=== PATIENT | male | born 1990 | race American Indian/Alaskan Native ===

== ENCOUNTER 2017-02-26 12:23 | Emergency (ER) | payer OTHER, BC ==
[2017-02-26 12:40] VITALS: BP 126/74; RESP 18; TEMP 97; O2SAT 98
[2017-02-26 13:20] LABS: ABG ALLEN TEST YES; ARTERIAL BLOOD GAS HCO3 26.7 mmol/L (21-28); ARTERIAL BLOOD GAS HEMOGLOBIN 14.8 g/dL (11.7-17.4); ARTERIAL BLOOD GAS O2 CAPACITY 20.1 mL/dL (16-24); ARTERIAL BLOOD GAS O2 CONTENT 20.2 ML/dL (15-23); ARTERIAL BLOOD GAS O2 SAT 100.6 % (95-98); ARTERIAL BLOOD GAS PCO2 42 mm/Hg (35-45); ARTERIAL BLOOD GAS PH 7.42 (7.35-7.45); ARTERIAL BLOOD GAS PO2 159 mm/Hg (80-100); ARTERIAL BLOOD GAS TCO2 28.5 mmol/L (22-28)
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
[2017-02-26 14:03] VITALS: PULSE 50
--- NOTE | 2017-02-27 07:52 | CARD ---
APPROVED REPORT EKG Measurement Heart [id number] <Conclusion> Sinus bradycardia Otherwise normal ECG
== END 2017-02-26 14:14 | disposition home or self-care (01) ==
LOC: H.ER 12:23
DX: T59.91XA Toxic effect of unspecified gases, fumes and vapors, accidental (unintentional), initial encounter (principal)